=== PATIENT | female | born 1985 | race African-American/Black ===

== ENCOUNTER 2018-01-01 21:28 | Outpatient (CLI) | payer MEDICAID ==
[2018-01-01 22:15] LABS: AMORPHOUS SEDIMENT,URINE TRACE /HPF; APPEARANCE,URINE CLOUDY; BILIRUBIN,URINE NEGATIVE (NEGATIVE); COLOR,URINE YELLOW; GLUCOSE, URINE NEGATIVE (NEGATIVE); KETONES,URINE NEGATIVE (NEGATIVE); LEUKOCYTE ESTERASE,URINE TRACE (NEGATIVE); NITRITE,URINE NEGATIVE (NEGATIVE); PROTEIN,URINE NEGATIVE (NEGATIVE); UROBILINOGEN,URINE NEGATIVE mg/dL (<2.0)
[2018-01-01 22:18] LABS: AMNISURE (ROM) NEGATIVE (NEGATIVE)
[2018-01-01 22:26] LABS: URINE AMPHETAMINES SCREEN NEGATIVE; URINE BARBITURATES SCREEN NEGATIVE; URINE BENZODIAZEPINES SCREEN NEGATIVE; URINE COCAINE SCREEN NEGATIVE; URINE MARIJUANA (THC) SCREEN NEGATIVE; URINE METHADONE SCREEN NEGATIVE; URINE PHENCYCLIDINE SCREEN NEGATIVE
--- NOTE | 2018-01-01 22:56 | Non Stress Test Report ---
Non Stress Test Datetime Report Generated by CPN: 01/01/2018 22:56 DEMOGRAPHIC EGA NST: 33.4 INDICATION Indication for Study: Ordered by Provider; Other Indication for Study (NST) Other: LC MONITORING Monitor Explained: Monitor Explained; Test Explained; Patient Verbalized Understanding Time on Monitor: 01/01/2018 22:04 Time off Monitor: 01/01/2018 22:53 NST Duration: 49 NST INTERVENTIONS Physician Notified NST: Dr Saenz BABY A: [id number] BABY A Movement : Present Contraction Frequency : x1 FHR Baseline : 135 Accelerations : 15X15 Decelerations : None Variability : Moderate 6-25bpm NST Review: Meets Criteria for Reactive NST NST Review and Verified By : B Cruz, RN NST Results: Reactive NST REPORT Report Trigger: Send Report
[2018-01-01] MEDS ORDERED: ACETAMINOPHEN 325 MG TABLET ONE (23:09)
== END 2018-01-01 23:22 | disposition home or self-care (01) ==
LOC: LC 21:28
PROVIDERS: ATTEND Student in an Organized Health Care Education/Training Program
PROC: 4A1HXCZ Monitoring of Products of Conception, Cardiac Rate, External Approach (ICD-10-PCS; principal; 2018-01-01)
DX: O26.893 Other specified pregnancy related conditions, third trimester (principal); R10.2 Pelvic and perineal pain; Z3A.33 33 weeks gestation of pregnancy
CPT/HCPCS: 59025; 84112; 81001; 80307; J3490

== ENCOUNTER 2018-01-19 14:22 | Outpatient (CLI) | payer MEDICAID ==
--- NOTE | 2018-01-19 15:19 | Non Stress Test Report ---
Non Stress Test Datetime Report Generated by CPN: 01/19/2018 15:18 DEMOGRAPHIC EGA NST: 36.1 INDICATION Indication for Study: Diabetes Mellitus MONITORING Monitor Explained: Monitor Explained; Test Explained; Patient Verbalized Understanding Time on Monitor: 01/19/2018 14:32 Time off Monitor: 01/19/2018 15:08 NST Duration: 36 NST INTERVENTIONS NST Interventions: PO Hydration Physician Notified NST: P Lopez CNM BABY A: [id number] BABY A Movement : Present Contraction Frequency : x0 FHR Baseline : 140 Accelerations : 15X15 Decelerations : None Variability : Moderate 6-25bpm NST Review: Meets Criteria for Reactive NST NST Review and Verified By : Nalini Gonzalez RN NST Results: Reactive NST REPORT Report Trigger: Send Report
== END 2018-01-19 15:17 | disposition home or self-care (01) ==
LOC: LC 14:22
PROVIDERS: ATTEND Obstetrics & Gynecology
PROC: 4A1HXCZ Monitoring of Products of Conception, Cardiac Rate, External Approach (ICD-10-PCS; principal; 2018-01-19)
DX: O24.419 Gestational diabetes mellitus in pregnancy, unspecified control (principal); Z3A.36 36 weeks gestation of pregnancy
CPT/HCPCS: 59025

== ENCOUNTER 2018-02-01 17:20 | Outpatient (CLI) | payer MEDICAID ==
[2018-02-01 18:02] LABS: APPEARANCE,URINE SLIGHTLY-CLOUDY; BILIRUBIN,URINE NEGATIVE (NEGATIVE); COLOR,URINE YELLOW; GLUCOSE, URINE NEGATIVE (NEGATIVE); KETONES,URINE NEGATIVE (NEGATIVE); LEUKOCYTE ESTERASE,URINE MODERATE (NEGATIVE); NITRITE,URINE NEGATIVE (NEGATIVE); PROTEIN,URINE NEGATIVE (NEGATIVE); URINE SPECIFIC GRAVITY 1.009; UROBILINOGEN,URINE NEGATIVE mg/dL (<2.0)
[2018-02-01 18:11] LABS: AMNISURE (ROM) NEGATIVE (NEGATIVE)
[2018-02-01 18:21] LABS: URINE AMPHETAMINES SCREEN NEGATIVE; URINE BARBITURATES SCREEN NEGATIVE; URINE BENZODIAZEPINES SCREEN NEGATIVE; URINE COCAINE SCREEN NEGATIVE; URINE MARIJUANA (THC) SCREEN NEGATIVE; URINE METHADONE SCREEN NEGATIVE; URINE PHENCYCLIDINE SCREEN NEGATIVE
--- NOTE | 2018-02-01 18:38 | Non Stress Test Report ---
Non Stress Test Datetime Report Generated by CPN: 02/01/2018 18:38 DEMOGRAPHIC EGA NST: 38.0 INDICATION Indication for Study: Ordered by Provider MONITORING Monitor Explained: Monitor Explained; Test Explained; Patient Verbalized Understanding Time on Monitor: 02/01/2018 17:49 Time off Monitor: 02/01/2018 18:33 NST Duration: 44 NST INTERVENTIONS NST Interventions: Reposition Patient Physician Notified NST: Dr. Mariano BABY A: [id number] BABY A Movement : Present Contraction Frequency : None FHR Baseline : 135 Accelerations : 15X15 Decelerations : None Variability : Moderate 6-25bpm NST Review: Meets Criteria for Reactive NST NST Review and Verified By : Gisselle Bellavasydnee RNC NST Results: Reactive NST REPORT Report Trigger: Send Report
== END 2018-02-01 18:42 | disposition home or self-care (01) ==
LOC: LC 17:20
PROVIDERS: ATTEND Obstetrics & Gynecology
PROC: 4A1HXCZ Monitoring of Products of Conception, Cardiac Rate, External Approach (ICD-10-PCS; principal; 2018-02-01)
DX: O47.1 False labor at or after 37 completed weeks of gestation (principal); O24.415 Gestational diabetes mellitus in pregnancy, controlled by oral hypoglycemic drugs; Z3A.38 38 weeks gestation of pregnancy
CPT/HCPCS: 80307; 81005; 84112

== ENCOUNTER 2018-02-08 05:03 | Inpatient (IN) | payer MEDICAID, OTHER ==
[2018-02-07 12:28] LABS: APPEARANCE,URINE SLIGHTLY-CLOUDY; BILIRUBIN,URINE NEGATIVE (NEGATIVE); COLOR,URINE YELLOW; GLUCOSE, URINE NEGATIVE (NEGATIVE); KETONES,URINE NEGATIVE (NEGATIVE); LEUKOCYTE ESTERASE,URINE NEGATIVE (NEGATIVE); NITRITE,URINE NEGATIVE (NEGATIVE); PROTEIN,URINE NEGATIVE (NEGATIVE); URINE SPECIFIC GRAVITY 1.011; UROBILINOGEN,URINE NEGATIVE mg/dL (<2.0)
[2018-02-07 12:35] LABS: URINE AMPHETAMINES SCREEN NEGATIVE; URINE BARBITURATES SCREEN NEGATIVE; URINE BENZODIAZEPINES SCREEN NEGATIVE; URINE COCAINE SCREEN NEGATIVE; URINE MARIJUANA (THC) SCREEN NEGATIVE; URINE METHADONE SCREEN NEGATIVE; URINE PHENCYCLIDINE SCREEN NEGATIVE
[2018-02-07 13:14] LABS: ABSOLUTE EOSINOPHILS # (AUTO) 0.2 10^3/uL (0.0-0.6); ABSOLUTE LYMPHOCYTES (AUTO) 1.3 10^3/uL (0.5-4.7); ABSOLUTE MONOCYTES (AUTO) 0.6 10^3/uL (0.1-1.4); ABSOLUTE NEUT (AUTO) 5.9 10^3/uL (1.7-8.2); BASOPHILS % (AUTO) 0.3 % (0-2); EOSINOPHILS % (AUTO) 1.9 % (0-6); HEMATOCRIT 32.3 % (36.0-47.0); HEMOGLOBIN 10.8 g/dL (12.0-15.5); LYMPHOCYTES % (AUTO) 16.5 % (13-45); MEAN CORPUSCULAR HEMOGLOBIN 28.4 pg (27.0-33.4); MEAN CORPUSCULAR HGB CONC 33.3 g/dL (32.0-36.0); MEAN CORPUSCULAR VOLUME 85 fl (80-97); MONOCYTES % (AUTO) 7.3 % (3-13); PLATELET COUNT 258 10^3/uL (150-450); RED BLOOD COUNT 3.79 10^6/uL (3.72-5.28); RED CELL DISTRIBUTION WIDTH 14.9 % (11.5-14.0); TOTAL CELLS COUNTED % (AUTO) 100 %
[~2018-02-08 05:03] MED LIST: CEFAZOLIN SODIUM 3 GM in NORMAL SALINE 100 ML IV PRN; LACTATED RINGERS 1000 ML IV PRN; LIDOCAINE 0.5% INJ-PF (5 MG/ML) 50 ML SDV SUBCUT PRN; RINGERS SOLUTION,LACTATED 2,000 ML IV PRN
[2018-02-08] MEDS ORDERED: FENTANYL CITRATE INJ/PF 100 MCG/2 ML AMPUL ONE ×2 (07:34→11:09)
[2018-02-08] MEDS ORDERED: MIDAZOLAM 2 MG/2 ML INJ ONE (07:34)
[2018-02-08] MEDS ORDERED: OXYTOCIN 10 UNIT/ML VIAL ONE (07:34)
[2018-02-08] MEDS ORDERED: OXYTOCIN/NORMAL SALINE 20 UNIT/1,000 ML RTUINJ ONE (07:34)
[2018-02-08] MEDS ORDERED: TETRACAINE HCL/PF 20MG/2ML AMPULE (SPINAL) ONE (07:35)
[2018-02-08] MEDS ORDERED: ONDANSETRON HCL INJ/PF 4 MG/2 ML SDV ONE (07:35)
[2018-02-08] MEDS ORDERED: NORMAL SALINE 1000 ML 1,000 ML IV PRN (09:09)
[2018-02-08] MEDS ORDERED: ACETAMINOPHEN 325 MG TABLET PO PRN (09:09)
[2018-02-08] MEDS ORDERED: RINGERS SOLUTION,LACTATED 1,000 ML IV PRN (09:09)
[2018-02-08] MEDS ORDERED: OXYCODONE-ACETAMINOPHEN 5-325 MG TABLET PO PRN (09:09)
[2018-02-08] MEDS ORDERED: PROMETHAZINE HCL INJ 25 MG/1 ML VIAL IV PRN (09:09)
[2018-02-08] MEDS ORDERED: SIMETHICONE 80 MG TAB.CHEW PO PRN (09:09)
[2018-02-08] MEDS ORDERED: OXYTOCIN/NORMAL SALINE 20 UNIT/1,000 ML RTUINJ IV PRN (09:09)
[2018-02-08] MEDS ORDERED: MEASLES,MUMPS&RUBELLA VACC/PF 0.5 ML VIAL SUBCUT PRN ×2 (09:09→11:00)
[2018-02-08] MEDS ORDERED: DIPH/PERTUSS(ACELL)/TETANUS VAC/PF 0.5 ML SYR (>=10YO) IM PRN ×2 (09:09→11:00)
[2018-02-08] MEDS ORDERED: NALBUPHINE HCL INJ 10 MG/1 ML AMPULE INJ ONE (09:11)
--- NOTE | 2018-02-08 09:18 | Brief Operative Note ---
BRIEF OPERATIVE REPORT DATE OF SURGERY: 02/08/18 TIME OF SURGERY: 09:00 PREOPERATIVE DIAGNOSIS: 39+0ega, , H/o C/S, A2GDM, Obesity with BMI 40, GBS positive POSTOPERATIVE DIAGNOSIS: NICK - delivered, muchal cord SURGEON: FLEX CRUZ FINDINGS: Mild scar tissue of rectus muscle, normal bilateral tubes/ovaries, VMI delivered via breech presentation due to ralph to convert from cephalic due to very tight nuchal cord and unable to deliver from cephalic presentation. Time of 0817, Apgars 6/8. Weight 3485g, 7#11oz. IVF 1500ml, UOP 175ml, 700ml EBL. QBL pending. COMPLICATIONS: None ESTIMATED BLOOD LOSS: 700ml TISSUE REMOVED OR ALTERED: placenta and cord not sent to pathology TECHNICAL PROCEDURE: Repeat LTCS
[2018-02-08] MEDS ORDERED: ACETAMINOPHEN 100 ML IV ONE (09:25)
--- NOTE | 2018-02-08 09:26 | PDOC DELIVERY SUMMARY ---
Delivery Summary - Maternal Hx : III Hx Para: II Hx # Term Pregnancies: 2 Hx # Pregnancies: 0 Hx Total # of Abortions (Sponateous & Elective): 0 Number of Living Children: 2 TIMUR: 02/15/18 Gestational Age: 39 Risk Factors: Gestational Diabetes Ruptured Membranes: AROM Time of Rupture: 08:12 Fluids: Clear - Delivery Labor: Not In Labor Presentation: Vertex Heart Rate Monitoring: Done Pre-Operatively Uterine Contraction Monitoring: External Support Person Present: Yes - MALORIE BOYFRIEND Location: OR : Scheduled, Repeat Placenta: Within Normal Limits Placenta Description: Normal Nuchal Cord: Yes Delivery of Placenta Date: 02/08/18 Delivery of Placenta Time: 08:18 Estimated Blood Loss: 700 Quantitative Blood Loss (QBL): 1,145 - Medications Type of Anesthesia:: Spinal - Assess and Care Baby 1 Male Delivery of Date: 02/08/18 Delivery of Time: 08:17 at 1 minute: 6 at 5 minutes: 8 Preprinted Number On Band: [id number] Skin to Skin: Yes Skin to Skin (Mins): 5 To Nursery At: 08:31 Mode of Transport: Bassinet Delivery Weight: 3,485 Infant Delivery Length: 21.75 in - Delivery Personnel Biosecurity Officer: STEFFANIE BRAGA RN: ANUSHA MARTINS RN: LANCE TERRY MD: FLEX CRUZ
[2018-02-08] MEDS ORDERED: MEPERIDINE HCL/PF INJ 25 MG/1 ML DISP.SYRIN ONE (09:49)
[2018-02-08] MEDS: PRENATAL VITAMIN W DHA CAPSULE PO SCH (11:53)
[2018-02-08] MEDS: DOCUSATE SODIUM 100 MG CAPSULE PO SCH ×2 (11:53→17:52)
[2018-02-08] MEDS: OXYCODONE-ACETAMINOPHEN 5-325 MG TABLET PO PRN ×3 (11:59→20:03)
[2018-02-08] MEDS: KETOROLAC TROMETHAMINE INJ/PF 30 MG/1 ML SDV IV SCH ×2 (13:33→21:38)
[2018-02-09] MEDS: OXYCODONE-ACETAMINOPHEN 5-325 MG TABLET PO PRN ×2 (04:19→12:16)
[2018-02-09 06:47] LABS: HEMATOCRIT 30.4 % (36.0-47.0); HEMOGLOBIN 10.1 g/dL (12.0-15.5); MEAN CORPUSCULAR HEMOGLOBIN 28.3 pg (27.0-33.4); MEAN CORPUSCULAR HGB CONC 33.2 g/dL (32.0-36.0); MEAN CORPUSCULAR VOLUME 85 fl (80-97); PLATELET COUNT 244 10^3/uL (150-450); RED BLOOD COUNT 3.56 10^6/uL (3.72-5.28); RED CELL DISTRIBUTION WIDTH 15.5 % (11.5-14.0); WHITE BLOOD COUNT 11.4 10^3/uL (4.0-10.5)
[2018-02-09] MEDS: IBUPROFEN 800 MG TABLET PO SCH ×4 (07:38→23:15)
[2018-02-09] MEDS: DOCUSATE SODIUM 100 MG CAPSULE PO SCH ×2 (09:44→17:52)
[2018-02-09] MEDS: PRENATAL VITAMIN W DHA CAPSULE PO SCH (09:45)
--- NOTE | 2018-02-09 13:13 | PDOC PROGRESS REPORT ---
Subjective-OB Progress Note for:: 02/09/18 Subjective: no complaints Physical Exam (OB) Vital Signs: Temp Pulse Resp BP Pulse Ox 98.4 F 101 H 20 102/59 L 97 02/09/18 03:51 02/09/18 03:51 02/09/18 03:51 02/09/18 03:51 02/09/18 03:51 Intake & Output 02/08/18 02/09/18 02/10/18 06:59 06:59 06:59 Intake Total 1830 Output Total 1610 1150 Balance 220 -1150 Weight 128.82 kg - Dressing Removed: No - incision D&I, no redness, swelling or drainage noted Incision: Dressing, Well Approximated Closure Type: Surgical Glue - Lochia Lochia Amount: Scant < 10 ml Lochia Color: Rubra/Red - Abdomen Description: Tender, Soft Hernia Present: No Bowel Sounds: Normoactive Flatus Presence: Absent Fundal Description: Firm, Midline Fundal Height: u/u - u/2 - Respiratory Breath sounds: Clear - Extremities Calf: Normal Objective-Diagnostic Laboratory: 02/09/18 06:30 02/09/18 06:30 WBC 11.4 H RBC 3.56 L Hgb 10.1 L Hct 30.4 L MCV 85 MCH 28.3 MCHC 33.2 RDW 15.5 H Plt Count 244 Assessment and Plan(PN) - Assessment and Plan (1) Delivery by (planned) section occurring after 37 completed weeks of gestation but before 39 completed weeks gestation due to (spontaneous) onset of labor, with mention of complication Is this a current diagnosis for this admission?: Yes - Time Spent with Patient Time with patient: Less than 15 minutes - Disposition Anticipated Discharge: Home Within: within 48 hours
[2018-02-10] MEDS: OXYCODONE-ACETAMINOPHEN 5-325 MG TABLET PO PRN (00:18)
[2018-02-10] MEDS: IBUPROFEN 800 MG TABLET PO SCH ×2 (05:08→11:25)
[2018-02-10] MEDS: PRENATAL VITAMIN W DHA CAPSULE PO SCH (09:47)
[2018-02-10] MEDS: DOCUSATE SODIUM 100 MG CAPSULE PO SCH (09:48)
--- NOTE | 2018-02-10 10:25 | PDOC DISCHARGE SUMMARY ---
Final Diagnosis Discharge Date: 02/10/18 - Final Diagnosis (1) Delivery by (planned) section occurring after 37 completed weeks of gestation but before 39 completed weeks gestation due to (spontaneous) onset of labor, with mention of complication Is this a current diagnosis for this admission?: Yes (2) Gestational diabetes mellitus (GDM) treated with oral hypoglycemic therapy Is this a current diagnosis for this admission?: Yes (3) Obesity affecting Is this a current diagnosis for this admission?: Yes (4) Uterine scar from previous delivery Is this a current diagnosis for this admission?: Yes Discharge Data - Discharge Medication Prescriptions: Oxycodone HCl/Acetaminophen [Percocet 5-325 mg Tablet] 2 tab PO Q4HP PRN #30 tablet PRN Reason: Docusate Sodium [Colace 100 mg Capsule] 100 mg PO BID #60 capsule Ferrous Sulfate 325 mg PO BID #60 tablet Ibuprofen [Motrin 800 mg Tablet] 800 mg PO Q6 #60 tablet Home Medications: Vits96/Iron Fum/Folic [ Tablet] 1 tab PO DAILY 01/01/18 Docusate Sodium [Colace 100 mg Capsule] 100 mg PO BID #60 capsule 02/10/18 Ferrous Sulfate 325 mg PO BID #60 tablet 02/10/18 Ibuprofen [Motrin 800 mg Tablet] 800 mg PO Q6 #60 tablet 02/10/18 Oxycodone HCl/Acetaminophen [Percocet 5-325 mg Tablet] 2 tab PO Q4HP PRN #30 tablet 02/10/18 Reason(s) for Admission: Ceasarean Section-Repeat Intrapartum Procedure(s): : Low Cervical, Transverse - [place] Data Baby 1 Male at 1 minute: 6 at 5 minutes: 8 Weight: 3485 kg Home with Mother: Yes Complications: No - Diagnosis Test Laboratory: Temp Pulse Resp BP Pulse Ox 97.8 F 84 20 105/60 98 02/10/18 08:25 02/10/18 08:25 02/10/18 08:25 02/10/18 08:25 02/10/18 08:25 02/07/18 02/07/18 02/09/18 11:24 12:27 06:30 RBC 3.79 3.56 L Hgb 10.8 L 10.1 L Hct 32.3 L 30.4 L Urine Opiates Screen NEGATIVE - Discharge information/Instructions Discharge Activity: Activity As Tolerated, No Lifting Over 10 Pounds, Pelvic Rest, No tub bath Discharge Diet: Regular Disposition: HOME, SELF-CARE Follow up with: [facility] in: 1, Weeks
[2018-02-10 11:07] VITALS: BP 121/64
== END 2018-02-10 12:10 | disposition home or self-care (01) | DRG 765 ==
LOC: 2S 05:03
PROVIDERS: ADMIT Student in an Organized Health Care Education/Training Program; ATTEND Student in an Organized Health Care Education/Training Program
PROC: 4A1HXCZ Monitoring of Products of Conception, Cardiac Rate, External Approach (ICD-10-PCS; 2018-02-08)
PROC: 10D00Z1 Extraction of Products of Conception, Low, Open Approach (ICD-10-PCS; principal; 2018-02-08 07:45)
DX: O34.219 Maternal care for unspecified type scar from previous cesarean delivery (principal); Z68.42 Body mass index [BMI] 45.0-49.9, adult; O69.1XX0 Labor and delivery complicated by cord around neck, with compression, not applicable or unspecified; O24.425 Gestational diabetes mellitus in childbirth, controlled by oral hypoglycemic drugs; O34.211 Maternal care for low transverse scar from previous cesarean delivery; O99.214 Obesity complicating childbirth; E66.9 Obesity, unspecified; Z3A.37 37 weeks gestation of pregnancy; Z37.0 Single live birth
CPT/HCPCS: 1961; 36415; 59025; 80307; 81001; 82962; 85025; 85027; 86850; 86900; 86901; 94799; C1765; J0131; J0690; J1885; J2175; J2250; J2405; J2590; J3010; J3490

== ENCOUNTER 2020-03-05 21:34 | Emergency (ER) | payer BC, MEDICAID ==
[2020-03-05] MEDS ORDERED: ACETAMINOPHEN 325 MG TABLET PO ONE (22:14)
[2020-03-05 23:21] LABS: A TYPE INFLUENZA AG NEGATIVE (NEGATIVE); B INFLUENZA AG NEGATIVE (NEGATIVE)
--- NOTE | 2020-03-06 | ER Document Report ---
ED Fever - General Chief Complaint: Fever Stated Complaint: FEVER Time Seen by Provider: 03/05/20 22:35 Primary Care Provider: SUZANNE CAIN MD [Primary Care Provider] - Follow up as needed Mode of Arrival: Ambulatory Information source: Patient Notes: 34-year-old woman presents to the emergency department with a complaint of sore throat and feeling poorly. She states that her symptoms began today and have worsened throughout the evening. She denies cough, shortness of breath, nausea, vomiting, or diarrhea. TRAVEL OUTSIDE OF THE [place] IN LAST 30 DAYS: No - Related Data Allergies/Adverse Reactions: No Known Allergies Allergy (Verified 02/07/18 11:02) Past Medical History - Social History Smoking Status: Unknown if Ever Smoked Family History: Reviewed & Not Pertinent Patient has suicidal ideation: No Patient has homicidal ideation: No Neurological Medical History: Denies: Hx Seizures Past Surgical History: Denies: Hx Hysterectomy, Hx Pacemaker Review of Systems - Review of Systems Notes: Constitutional: +fever. HENT: + Sore throat. Eyes: Negative for visual changes. Cardiovascular: Negative for chest pain. Respiratory: Negative for shortness of breath. Gastrointestinal: Negative for abdominal pain, vomiting or diarrhea. Genitourinary: Negative for dysuria. Musculoskeletal: + Myalgia Skin: Negative for rash. Neurological: Negative for headaches, weakness or numbness. 10 point ROS negative except as marked above and in HPI. Physical Exam - Vital signs Vitals: Temp Pulse Resp BP Pulse Ox 100.5 F H 126 H 21 H 126/74 H 96 03/05/20 21:54 03/05/20 21:54 03/05/20 21:54 03/05/20 21:54 03/05/20 21:54 - Notes Notes: PHYSICAL EXAMINATION: Physical Exam: General: Well-nourished well-developed in no acute distress HEENT: NC/AT, pupils equal round and reactive to light, MM moist,nares clear, oropharynx + erythema, + swelling., airway patent Neck: supple, + lymphadenopathy anterior cervical region., no masses. Good range of motion Lungs: clear, no wheezing, no rales no rhonchi CVS: Regular rate and rhythm no murmur gallop or rub Abdomen: Soft, active, nontender, no masses, no hepatosplenomegaly Ext: No edema, clubbing or cyanosis. Neuro: Alert and responsive, moving all 4 extremities on command, cranial nerves intact, no focal findings Skin: Intact no open lesions, no rash PSYCH: Normal mood, normal affect. Course - Vital Signs Vital signs: Temp Pulse Resp BP Pulse Ox 100.5 F H 126 H 21 H 126/74 H 96 03/05/20 21:54 03/05/20 21:54 03/05/20 21:54 03/05/20 21:54 03/05/20 21:54 - Laboratory Laboratory results interpreted by me: I have reviewed laboratory data and used this information for the treatment decisions regarding the patient. Discharge - Discharge Clinical Impression: Strep pharyngitis Condition: Good Disposition: HOME, SELF-CARE Instructions: Fever ([facility]), Strep Throat ([facility]) Additional Instructions: You were seen in the emergency department tonight with prescription throat. Please complete antibiotics as prescribed amoxicillin 500 mg 3 times a day. You may use ibuprofen for pain may supplement with Tylenol as needed. Push fluids, follow-up with your doctor as needed. If your symptoms are worsening or you have other concerns you may return to the emergency department HOME CARE INSTRUCTIONS & INFORMATION: Thank you for choosing us for your medical needs. We hope you're satisfied with the care you received. After you leave, you must properly care for your problem and, at the same time, observe its progress. Any condition can change. Some illnesses can change rapidly over hours or days. If your condition worsens, return to the Emergency Department or see your physician promptly. ABOUT YOUR X-RAYS AND EKG'S: If you had an EKG or X-rays taken, they have been read by the Emergency Physician. The X-rays and EKG's will also be read by a Radiologist or Wind Commissioning Technician within 24 hours. If discrepancies are noted, you will be notified by telephone. Please be certain the ED has a correct telephone number & address where you can be reached. Also, realize that some fractures or abnormalities do not show up on initial X-rays. If your symptoms continue, see your physician. ABOUT YOUR LABORATORY TEST: If you had laboratory tests, the results have been reviewed by the Emergency Physician. Some test results (for example cultures) may not be available for several days. You will be contacted if any test result shows you need additional treatment. Please be certain the ED has a correct telephone number and address where you can be reached. ABOUT YOUR MEDICATIONS: You will receive instructions on how to take your medicine on the prescription label you receive. Additional information may be provided by the Pharmacy. If you have questions afterwards, call the ED for clarification or further instructions. Some prescribed medications may cause drowsiness. Do not perform tasks such as driving a car or operating machinery without consulting your Pharmacist. If you feel you need a refill of pain medication, your condition will need re-evaluation. Please do not call for a refill of any medication. ABOUT YOUR SIGNATURE: Signature of this document acknowledges to followin. Understanding that you received emergency treatment and that you may be released before al medical problems are known or treated. Please be certain the ED has a correct phone number & address where you can be reached. 2. Acknowledgement that you will arrange for follow-up care as recommended. 3. Authorization for the Emergency Physician to provide information to your follow-up Physician in order to maximize your care. AT ANY TIME, IF YOUR SYMPTOMS CHANGE SIGNIFICANTLY OR WORSEN OR YOU DEVELOP NEW SYMPTOMS, RETURN TO THE EMERGENCY DEPARTMENT IMMEDIATELY FOR RE-EVALUATION. OUR GOAL IS TO PROVIDE EXCELLENT MEDICAL CARE! WE HOPE THAT WE HAVE MET YOUR EXPECTATIONS DURING YOUR EMERGENCY DEPARTMENT VISIT AND THAT YOU FEEL YOU HAVE RECEIVED EXCELLENT CARE! Prescriptions: Amoxicillin 1 tab PO TID #30 tab Referrals: SUZANNE CAIN MD [Primary Care Provider] - Follow up as needed
[2020-03-06] MEDS ORDERED: AMOXICILLIN TRIHYDRATE 500 MG CAPSULE PO ONE (00:08)
[2020-03-06 00:13] VITALS: BP 108/50
== END 2020-03-06 00:30 | disposition home or self-care (01) ==
LOC: ER 21:34
DX: J02.0 Streptococcal pharyngitis (principal); R50.9 Fever, unspecified; M79.10 Myalgia, unspecified site
CPT/HCPCS: 87804; 87880; 99283